=== PATIENT | female | born 1940 | race Caucasian/White ===

== ENCOUNTER 2016-04-15 14:39 | Outpatient (CLI) | payer MEDICARE, MEDICAID ==
[2016-04-15 14:58] LABS: LDL Cholesterol, Calculated 48 mg/dL
[2016-04-15 15:01] LABS: Hemoglobin A1c 5.5 % (4.0-6.0)
[2016-04-15 15:31] LABS: Anion Gap 16 mmol/L (10-20); BUN (Urea Nitrogen) 25 mg/dL (9.8-20.1); Calc. Creatinine Clearance 0 mL/min (70-130); Calcium 8.8 mg/dL (7.8-10.44); Carbon Dioxide 24 mmol/L (23-31); Chloride 105 mmol/L (98-107); Estimated GFR-MDRD 58
== END 2016-04-15 14:40 ==
LOC: NAVSJIPCSP 14:39
PROVIDERS: ATTEND Internal Medicine
DX: E78.5 Hyperlipidemia, unspecified (principal); E11.29 Type 2 diabetes mellitus with other diabetic kidney complication; Z79.899 Other long term (current) drug therapy
CPT/HCPCS: 36415; 80048; 80061; 83036

== ENCOUNTER 2016-07-24 11:38 | Outpatient (CLI) | payer MEDICARE, MEDICAID ==
[2016-07-24 12:39] LABS: Hemoglobin A1c 4.8 % (4.0-6.0)
[2016-07-24 12:41] LABS: Anion Gap 16 mmol/L (10-20); BUN (Urea Nitrogen) 28 mg/dL (9.8-20.1); Calc. Creatinine Clearance 0 mL/min (70-130); Calcium 8.3 mg/dL (7.8-10.44); Carbon Dioxide 29 mmol/L (23-31); Cardiac Risk 4.1 (Less than 4.5); Chloride 95 mmol/L (98-107); Cholesterol 91 mg/dl (< 200 Desired); Estimated GFR-MDRD 41; Glucose 112 mg/dL (83-110); HDL Cholesterol 22 mg/dL (>60 Neg Risk); LDL Cholesterol, Calculated 47 mg/dL; Potassium 3.4 mmol/L (3.5-5.1); Sodium 137 mmol/L (136-145); Triglycerides 112 mg/dL (Less than 150)
== END 2016-07-24 11:39 | disposition home or self-care (01) ==
LOC: NAVSJIPCSP 11:38
PROVIDERS: ATTEND Internal Medicine
DX: E78.5 Hyperlipidemia, unspecified (principal); E11.29 Type 2 diabetes mellitus with other diabetic kidney complication; I11.0 Hypertensive heart disease with heart failure; Z79.899 Other long term (current) drug therapy
CPT/HCPCS: 80048; 80061; 83036

== ENCOUNTER 2016-09-17 14:09 | Outpatient (CLI) | payer MEDICARE, OTHER ==
[2016-09-17 14:28] LABS: #Basophils 0.1 thou/uL (0.0-0.2); #Eosinphils 0.1 thou/uL (0.0-0.7); #Lymphocytes 2.7 thou/uL (1.20-3.40); #Monocytes 0.6 thou/uL (0.11-0.59); #Neutrophils 5.6 thou/uL (1.40-6.50); %Basophils 0.6 % (0.0-1.0); %Eosinophils 1.2 % (0.0-10.0); %Lymphocytes 29.5 % (21.0-51.0); %Monocytes 6.7 % (0.0-10.0); %Neutrophils 61.9 % (42.0-75.0); Mean Corpuscular HGB CONC 32.1 g/dL (32.0-36.0); Mean Corpuscular Hemoglobin 28.3 pg (27.0-31.0); Mean Corpuscular Volume 88.4 fl (81.0-99.0); Mean Platelet Volume 6.8 fL (7.4-10.4); Platelet Count 225 thou/uL (130-400); RBC Distribution Width 16.2 % (11.5-14.5)
[2016-09-17 14:54] LABS: Anion Gap 15 mmol/L (10-20); BUN (Urea Nitrogen) 13 mg/dL (9.8-20.1); Calc. Creatinine Clearance 0 mL/min (70-130); Calcium 8.3 mg/dL (7.8-10.44); Carbon Dioxide 28 mmol/L (23-31); Chloride 103 mmol/L (98-107); Estimated GFR-MDRD 72; Glucose 98 mg/dL (83-110); Sodium 143 mmol/L (136-145)
[2016-09-17 15:04] LABS: Potassium 2.7 mmol/L (3.5-5.1)
== END 2016-09-17 14:10 | disposition home or self-care (01) ==
LOC: NAVSJIPCSP 14:09 → NAV LAB 14:10
PROVIDERS: ATTEND Internal Medicine
DX: I11.0 Hypertensive heart disease with heart failure (principal); I50.30 Unspecified diastolic (congestive) heart failure
CPT/HCPCS: 80048; 85025

== ENCOUNTER 2016-09-21 10:21 | Outpatient (CLI) | payer MEDICARE, OTHER ==
[2016-09-21 14:03] LABS: ALT (SGPT) 13 U/L (8-55); AST (SGOT) 24 U/L (5-34); Alkaline Phosphatase 69 U/L (40-150); Anion Gap 15 mmol/L (10-20); BUN (Urea Nitrogen) 12 mg/dL (9.8-20.1); Bilirubin, Total 0.6 mg/dL (0.2-1.2); Calc. Creatinine Clearance 0 mL/min (70-130); Calcium 8.3 mg/dL (7.8-10.44); Carbon Dioxide 26 mmol/L (23-31); Chloride 104 mmol/L (98-107); Estimated GFR-MDRD 67; Globulin 2.3 g/dL (2.4-3.5); Glucose 123 mg/dL (83-110); Potassium 3.6 mmol/L (3.5-5.1); Protein, Total 5.3 g/dL (6.0-8.3); Sodium 141 mmol/L (136-145)
== END 2016-09-21 10:22 | disposition home or self-care (01) ==
LOC: NAVSJIPCSP 10:21
PROVIDERS: ATTEND Internal Medicine
DX: E11.29 Type 2 diabetes mellitus with other diabetic kidney complication (principal); Z79.899 Other long term (current) drug therapy
CPT/HCPCS: 36415; 80053

== ENCOUNTER 2016-10-15 09:52 | Outpatient (CLI) | payer MEDICARE, OTHER ==
[2016-10-15 12:38] LABS: Hemoglobin A1c 4.1 % (4.0-6.0)
[2016-10-15 13:28] LABS: ALT (SGPT) 12 U/L (8-55); AST (SGOT) 20 U/L (5-34); Albumin 3.4 g/dL (3.4-4.8); Alkaline Phosphatase 68 U/L (40-150); Anion Gap 13 mmol/L (10-20); BUN (Urea Nitrogen) 13 mg/dL (9.8-20.1); Bilirubin, Total 0.5 mg/dL (0.2-1.2); Calc. Creatinine Clearance 0 mL/min (70-130); Carbon Dioxide 25 mmol/L (23-31); Chloride 109 mmol/L (98-107); Cholesterol 125 mg/dl (< 200 Desired); Estimated GFR-MDRD 69; Globulin 2.3 g/dL (2.4-3.5); Glucose 80 mg/dL (83-110); HDL Cholesterol 31 mg/dL (>60 Neg Risk); LDL Cholesterol, Calculated 65 mg/dL; Potassium 4.3 mmol/L (3.5-5.1); Protein, Total 5.7 g/dL (6.0-8.3); Sodium 143 mmol/L (136-145); Triglycerides 147 mg/dL (Less than 150)
== END 2016-10-15 09:53 | disposition home or self-care (01) ==
LOC: NAVSJIPCSP 09:52
PROVIDERS: ATTEND Internal Medicine
DX: E78.5 Hyperlipidemia, unspecified (principal); E11.29 Type 2 diabetes mellitus with other diabetic kidney complication; Z79.899 Other long term (current) drug therapy
CPT/HCPCS: 36415; 80053; 80061; 83036

== ENCOUNTER 2016-11-19 03:53 | Emergency (ER) | payer MEDICARE, OTHER ==
[2016-11-19] MEDS ORDERED: Sodium Chloride 0.9% 1,000 ML ONE (04:21)
[2016-11-19] MEDS ORDERED: Ondansetron HCl/PF 4 MG/2 ML Vial ONE ×2 (04:21→07:22)
[2016-11-19 04:27] LABS: #Eosinphils 0.1 thou/uL (0.0-0.7); #Lymphocytes 1.1 thou/uL (1.20-3.40); #Monocytes 0.4 thou/uL (0.11-0.59); #Neutrophils 5.4 thou/uL (1.40-6.50); %Basophils 0.7 % (0.0-1.0); %Eosinophils 1.3 % (0.0-10.0); %Lymphocytes 15.2 % (21.0-51.0); %Monocytes 6.2 % (0.0-10.0); %Neutrophils 76.6 % (42.0-75.0); Mean Corpuscular HGB CONC 33.3 g/dL (32.0-36.0); Mean Corpuscular Hemoglobin 28.2 pg (27.0-31.0); Mean Corpuscular Volume 84.8 fl (81.0-99.0); Mean Platelet Volume 7.4 fL (7.4-10.4); Platelet Count 133 thou/uL (130-400); RBC Distribution Width 12.3 % (11.5-14.5); Red Blood Cell (RBC) Count 3.88 mill/uL (4.20-5.40)
[2016-11-19 04:39] LABS: INR-International Normal Ratio 1.3; PTT 37.1 SEC (22.9-36.1); Prothrombin Time 16.5 SEC (12.0-14.7)
[2016-11-19 04:48] LABS: ALT (SGPT) 15 U/L (8-55); AST (SGOT) 18 U/L (5-34); Albumin 3.8 g/dL (3.4-4.8); Alkaline Phosphatase 72 U/L (40-150); Anion Gap 12 mmol/L (10-20); BUN (Urea Nitrogen) 19 mg/dL (9.8-20.1); Bilirubin, Total 1.1 mg/dL (0.2-1.2); Calc. Creatinine Clearance 0 mL/min (70-130); Calcium 9.8 mg/dL (7.8-10.44); Carbon Dioxide 28 mmol/L (23-31); Chloride 104 mmol/L (98-107); Estimated GFR-MDRD 71; Globulin 2.4 g/dL (2.4-3.5); Glucose 98 mg/dL (83-110); Lipase 11 U/L (8-78); Potassium 3.3 mmol/L (3.5-5.1); Protein, Total 6.2 g/dL (6.0-8.3); Sodium 141 mmol/L (136-145)
[2016-11-19 04:49] LABS: CKMB 1.8 ng/mL (0-6.6); Troponin I 0.015 ng/mL (< 0.028)
[2016-11-19 05:02] LABS: Bilirubin Negative (Negative); Blood, Urine Large (Negative); Clarity Clear (Clear); Glucose, Urine (Dipstick) Negative (Negative); Leukocyte Negative (Negative); Nitrite Negative (Negative); Protein, Urine (Dipstick) > or equal to 300 mg/dL (Neg-Trace); Specific Gravity, Urine 1.025 (1.005-1.030); Urobilinogen 0.2 mg/dL (0.2-1.0)
[2016-11-19 05:03] LABS: Bacteria/HPF Rare-Few HPF (None Seen); RBC/HPF GREATER THAN 50-TNTC HPF (0-3); WBC/HPF None Seen HPF (0-3)
[2016-11-19] MEDS ORDERED: Morphine Sulfate 2 MG/ML SYRINGE ONE (07:16)
--- NOTE | 2016-11-19 07:57 | CT ---
PRELIMINARY REPORT/[facility]/EMERGENCY AFTER HOURS PROCEDURE: EXAM: CT Abdomen and Pelvis With Intravenous Contrast EXAM DATE/TIME: Exam ordered 11/19/2016 6:45 AM CLINICAL HISTORY: 76 years old, female; Pain; Abdominal pain; Generalized; Prior surgery; Surgery date: 1-6 months; [facility] type: Hernia repair; Patient HX: Abd pain and bloating, reports having nausea and vomiting get ting worse throughout day; Reports having pain in abdomen located r mid area; Reports no fever, no d iarrhea; Recovering from hernia surgery in may TECHNIQUE: Axial computed tomography images of the abdomen and pelvis with intravenous contrast. All CT scans a t this facility use one or more dose reduction techniques, viz.: automated exposure control; ma/kV a djustment per patient size (including targeted exams where dose is matched to indication; i.e. head) ; or iterative reconstruction technique. Coronal and sagittal reformatted images were created and reviewed. CONTRAST: 96 mL of ISOVUE 370 administered intravenously. COMPARISON: No relevant prior studies available. FINDINGS: Lower thorax: There are small bilateral pleural effusions with interlobular septal thickening sugges tive of pulmonary edema. ABDOMEN: Liver: There are no focal liver lesions present. Gallbladder and bile ducts: gallbladder sludge is present. No calcified stones. No ductal dilation. Pancreas: The pancreas is normal. No ductal dilation. Spleen: The spleen is normal. Adrenals: The adrenal glands are normal. Kidneys and ureters: The right kidney is normal. There is a focal left renal hypodensity that cannot be further characterized on the current examination. The ureters are normal. No hydronephrosis. Stomach and bowel: There is dilatation of the small bowel 4 cm with abrupt collapse in the RIGHT low er quadrant consistent with high-grade small bowel obstruction. Stomach is mildly distended. The duo denum is unremarkable. There is a ventral pelvic wall hernia containing a loop of nonobstructed larg e bowel. No mucosal thickening. Appendix: No findings to suggest acute appendicitis. PELVIS: Bladder: The bladder is normal. Reproductive: The uterus is not visualized, and may be atrophic or surgically absent. ABDOMEN and PELVIS: Intraperitoneal space: There is a small amount of RIGHT upper quadrant ascites. No free air. Bones/joints: No acute fracture. No dislocation. Soft tissues: Ventral abdominal pelvic wall surgical scarring is present. Vasculature: Normal. No abdominal aortic aneurysm. Lymph nodes: Normal. No enlarged lymph nodes. IMPRESSION: There is dilatation of the small bowel 4 cm with abrupt collapse in the RIGHT lower quadrant consist ent with high-grade small bowel obstruction. Thank you for allowing us to participate in the care of your patient. Dictated and Authenticated by: Artemio Frances MD 11/19/2016 7:13 AM Central Time ([place] \T\ [place]) FINAL REPORT EMERGENCY AFTER HOURS CT OF ABDOMEN AND PELVIS WITH CONTRAST: Date: 11/19/16 FINDINGS/IMPRESSION: I agree with the findings and impression given in the preliminary report per [facility] physician. There a re dilated loops of proximal small bowel with a transition point in the right lower quadrant of the abdomen consistent with a bowel obstruction. There is a small amount of free fluid in the abdomen wi thout evidence of free air. POS: [facility]
[2016-11-19] MEDS ORDERED: Potassium Chloride 10 MEQ/100 ML PREMIX BAG ONE ×2 (08:47→09:02)
[2016-11-19] MEDS ORDERED: Iopamidol 370 76% 100 ML VIAL ONE (09:00)
[2016-11-19] MEDS ORDERED: Promethazine HCl 25 MG/ML VIAL ONE (10:32)
== END 2016-11-19 12:05 | disposition short-term general hospital (02) ==
LOC: NAV ERS 03:53
DX: K56.60 Unspecified intestinal obstruction (principal); K43.9 Ventral hernia without obstruction or gangrene; E87.6 Hypokalemia; I49.9 Cardiac arrhythmia, unspecified; I48.91 Unspecified atrial fibrillation; E11.9 Type 2 diabetes mellitus without complications; E78.5 Hyperlipidemia, unspecified; J45.909 Unspecified asthma, uncomplicated; Z79.899 Other long term (current) drug therapy; Z79.01 Long term (current) use of anticoagulants
CPT/HCPCS: 36415; 74177; 80053; 81003; 81015; 82553; 83605; 83690; 84484; 85025; 85610; 85730; 87086; 94760; 96361; 96365; 96366; 96375; 96376; J2270; J2405; J2550; J3480; J7050

== ENCOUNTER 2017-04-12 11:08 | Outpatient (CLI) | payer MEDICARE, MEDICAID ==
--- NOTE | 2017-04-12 14:37 | ULT ---
DOPPLER VENOUS ULTRASOUND OF LEFT UPPER EXTREMITY: INDICATION: Left upper extremity swelling for 2 days. TECHNIQUE: Garay scale, color Doppler, and vascular duplex was obtained of the venous structures left upper extre mity. FINDINGS: There is a large supraclavicular mass measuring 5.7 x 2.4 cm. There are multiple enlarged lymph node s seen. There are multiple additional enlarged lymph nodes within the subclavicular region measuring up to 1.2 cm. There is normal flow present within the venous structures of the left upper extremity . IMPRESSION: 1. Large left supraclavicular mass suspicious for a large conglomerate of lymph nodes measuring up t o 5.8 cm. Additional mildly prominent lymph nodes are seen within the left subglottic region. CT so ft tissue neck recommended. 2. No evidence of venous thrombosis of the left upper extremity. POS: [facility]
== END 2017-04-12 11:09 | disposition home or self-care (01) ==
LOC: NAV ULT 11:08
PROVIDERS: ATTEND Internal Medicine
DX: M79.89 Other specified soft tissue disorders (principal); R22.9 Localized swelling, mass and lump, unspecified; R59.9 Enlarged lymph nodes, unspecified; R22.31 Localized swelling, mass and lump, right upper limb

== ENCOUNTER 2017-04-13 08:51 | Outpatient (CLI) | payer MEDICARE, MEDICAID ==
[2017-04-13] MEDS ORDERED: Iopamidol 370 76% 100 ML VIAL ONE (09:00)
--- NOTE | 2017-04-13 12:19 | CT ---
CT NECK WITH CONTRAST: Technique: Multiple axial tomograms were obtained through the neck with IV enhancement. History: Recent left upper extremity venous ultrasound exam revealed evidence of left supraclavicular mass. This exam is performed for further assessment. FINDINGS: The parotid glands are mildly heterogeneous but appear symmetric. Submandibular glands appear unremar kable and symmetric. Thyroid is mildly heterogeneous. There is one low density nodule in the posterior right lobe of the t hyroid measuring 1.2 cm. The nasopharynx is unremarkable. Oropharynx is unremarkable. The Waldeyer's ring appears unremarkable with no tonsillar enlargement seen. Hypopharynx appears unremarkable and symmetric. Larynx is unremarkable. Lunchroom Att[employer] space is unremarkable. Parapharyngeal space is unremarkable. Retropharyngeal space is unremarkable. Carotid space show ather osclerotic changes in both carotid bulbs and proximal internal carotid arteries. No evidence of signi ficant stenosis. The intercarotid arteries are tortuous bilaterally and both exhibit a retropharyngea l course, more prominent on the right. Review of the lymph nodes show small nonspecific level I lymph nodes with a right submandibular node measuring up to 1.1 cm. Level II lymph nodes appear nonspecific. Jugular digastric node on the right measures 1.2 cm and a le ft jugular digastric node measures 1.0 cm with other level II lymph 2A and 2B lymph nodes seen bilate rally which appear nonspecific and subcentimeter. No significant level III adenopathy. There is a prominent level IV abnormality seen bilaterally, more pronounced on the left. There are nu merous enlarged left supraclavicular lymph nodes corresponding to the ultrasound findings. There is a conglomerate of probably three large coalescent lymph nodes in the left supraclavicular area which h ave a total measurement in the coronal plane of 4.6 cm craniocaudal x 4.0 cm width. There are other e nlarged lymph nodes as seen adjacent to the level IV region bilaterally. There are also enlarged lymp h nodes on the right at L4 with at least one lymph node on the right measuring up to 1.8 cm. Images through the upper mediastinum reveals an enlarged right paratracheal lymph node in the superio r mediastinum measuring 1.5 cm. There is also evidence of enlarged AP window node measuring up to 2.2 cm. There are small bilateral pleural effusions which are apparent on images through the chest. The paranasal sinuses are well aerated and clear. Mastoids are aerated. Also noted on images through the upper chest are enlarged retropectoral lymph nodes on the left whic h measure up to 2.0 cm. There is also evidence of left axillary adenopathy which is incompletely imag ed with left axillary nodes measures up to 2.5 cm which are partially imaged. IMPRESSION: 1. Level IV adenopathy seen bilaterally, more prominent in the left supraclavicular region with large lymphadenopathy in this region as described above. 2. Mild mediastinal adenopathy as noted above. 3. There is left retropectoral adenopathy noted and evidence of left axillary adenopathy noted as randy cribed above. 4. Evidence of bilateral pleural effusions. POS: [facility]
== END 2017-04-13 08:52 | disposition home or self-care (01) ==
LOC: NAV CT 08:51
PROVIDERS: ATTEND Internal Medicine
DX: R22.2 Localized swelling, mass and lump, trunk (principal); J90 Pleural effusion, not elsewhere classified
CPT/HCPCS: 70491

== ENCOUNTER 2017-05-29 10:15 | Emergency (ER) | payer MEDICARE, MEDICAID ==
[~2017-05-29 10:15] MED LIST: Iopamidol 370 76% 100 ML VIAL ONE
[2017-05-29 11:06] LABS: Hemoglobin 10.6 g/dL (12.0-16.0); Mean Corpuscular HGB CONC 33.8 g/dL (32.0-36.0); Mean Corpuscular Hemoglobin 30.2 pg (27.0-31.0); Mean Corpuscular Volume 89.4 fl (81.0-99.0); Mean Platelet Volume 8.3 fL (7.4-10.4); Platelet Count 142 thou/uL (130-400); RBC Distribution Width 12.6 % (11.5-14.5); Red Blood Cell (RBC) Count 3.49 mill/uL (4.20-5.40); White Blood Cell (WBC) Count 8.6 thou/uL (4.8-10.8)
[2017-05-29 11:14] LABS: Band 31 % (5-11); Lymphocytes 17 % (21-51); MDiff Complete? YES; Metamyelocyte 1 % (0-0); Monocytes 6 % (0-10); Neutrophil 45 % (42-75); PLT Morphology Comment Appears Adequate; RBC Morphology Normal
[2017-05-29 11:18] LABS: ALT (SGPT) 11 U/L (8-55); AST (SGOT) 21 U/L (5-34); Albumin 3.4 g/dL (3.4-4.8); Alkaline Phosphatase 61 U/L (40-150); Anion Gap 20 mmol/L (10-20); BUN (Urea Nitrogen) 61 mg/dL (9.8-20.1); Bilirubin, Total 0.9 mg/dL (0.2-1.2); Calc. Creatinine Clearance 0 mL/min (70-130); Calcium 10.1 mg/dL (7.8-10.44); Carbon Dioxide 20 mmol/L (23-31); Chloride 106 mmol/L (98-107); Estimated GFR-MDRD 41; Globulin 3.1 g/dL (2.4-3.5); Glucose 120 mg/dL (83-110); Potassium 5.4 mmol/L (3.5-5.1); Protein, Total 6.5 g/dL (6.0-8.3); Sodium 141 mmol/L (136-145)
[2017-05-29 11:22] LABS: CKMB 0.9 ng/mL (0-6.6); Troponin I Less than 0.010 ng/mL (< 0.028)
[2017-05-29] MEDS ORDERED: Furosemide 40 MG TAB ONE (11:37)
[2017-05-29] MEDS ORDERED: Furosemide 40 MG/4 ML VIAL ONE ×2 (11:38→11:41)
--- NOTE | 2017-05-29 12:28 | RAD ---
RADIOGRAPH CHEST 1 VIEW: Date: 05/29/17 Time: 1106 HOURS HISTORY: 77-year-old female with lymphoma, with dyspnea and cough. COMPARISON: 05/07/16. FINDINGS: There is a new right internal jugular implantable vascular access port with distal tip overlying the SVC. There is cardiomegaly, worse than on the prior study. There is pulmonary vascular engorgement. P reviously, a hazy, ill-defined mild region of increased attenuation was noted at the right lower lung zone. Now, there is a moderately larger such region at the right lower lung zone, but centered sligh tly more medially. Streaky bibasilar densities at bilateral lower lung zones. Overall increased hazin ess of the right mid and lower lung zones compared to the left. No pneumothorax. Mild blunting of the lateral costophrenic angles bilaterally suggestive of small pleural effusions. IMPRESSION: 1. Evidence for mild congestive heart failure: Cardiomegaly, pulmonary vascular congestion, and sma ll bilateral pleural effusions. 2. Nonspecific pulmonary densities at the bilateral lower lung zones, right greater than left, chron ic versus acute. JN [] POS: [facility]
[2017-05-29 12:49] LABS: Anion Gap 19 mmol/L (10-20); BUN (Urea Nitrogen) 62 mg/dL (9.8-20.1); Calc. Creatinine Clearance 0 mL/min (70-130); Carbon Dioxide 22 mmol/L (23-31); Chloride 105 mmol/L (98-107); Estimated GFR-MDRD 36; Glucose 127 mg/dL (83-110); Potassium 4.9 mmol/L (3.5-5.1); Sodium 141 mmol/L (136-145)
[2017-05-29] MEDS ORDERED: Morphine 4 MG/ML Carpuject ONE (13:24)
--- NOTE | 2017-05-29 14:26 | CT ---
CT ARTERIOGRAM CHEST WITH IV CONTRAST AND 3D MIP IMAGING: Date: 05/29/17 HISTORY: Dyspnea. Cough. Lymphoma. COMPARISON: PET CT dated 05/06/17. FINDINGS: There is good contrast opacification of the central pulmonary arteries. No filling defects are eviden t. Second and third order branch arteries are obscured by motion artifact. Bilateral pleural fluid an d bibasilar atelectasis, right greater than left. Bulky adenopathy throughout the mediastinum and lef t axilla, and less bulky adenopathy involving the right axilla, neck, and upper abdomen correlate wit h abnormalities on recent PET scan. IMPRESSION: 1. No CT evidence of pulmonary embolus. 2. Bilateral pleural effusions with bibasilar atelectasis. 3. Widespread adenopathy consistent with known lymphoma. POS: [facility]
== END 2017-05-29 13:58 | disposition short-term general hospital (02) ==
LOC: NAV ERS 10:15
DX: J18.9 Pneumonia, unspecified organism (principal); I50.9 Heart failure, unspecified; R09.02 Hypoxemia; C85.80 Other specified types of non-Hodgkin lymphoma, unspecified site; I48.91 Unspecified atrial fibrillation; E11.9 Type 2 diabetes mellitus without complications; E78.5 Hyperlipidemia, unspecified; J45.909 Unspecified asthma, uncomplicated; Z79.899 Other long term (current) drug therapy; Z79.01 Long term (current) use of anticoagulants
CPT/HCPCS: 36415; 71045; 71275; 80053; 82553; 83605; 83880; 84484; 85025; 85379; 87040; 87077; 87149; 93005; 94760; 96365; 96366; 96375; 96376; J1940; J1956; J2270; J7620